=== PATIENT | female | born 1990 | race Caucasian/White ===

== ENCOUNTER 2017-06-15 23:16 | Emergency (ER) | payer BC ==
[~2017-06-15] VITALS: Ht 167.6 cm; Wt 60.6 kg
[~2017-06-15 23:16] MED LIST: ADVAIR 250/501 DISK IH; ALBUTEROL SULF8.5 GM IH; BENTYL10 MG PO; BUSPAR10 MG PO; CALCIUM 600+D1 EAC1 PO; CIPRO500 MG PO; COLACE50 MG PO; CYCLOBENZAPRINE10 MG PO; CYMBALTA60 MG PO; DIFLUCAN150 MG PO; DOXYCYCLINE HY100 MG PO; Ecotrin PO; FLAGYL500 MG PO; FLEXERIL10 MG PO; GABAPENTIN300 MG PO; GABAPENTIN600 MG PO; HYDROXYZINE HCL10 MG PO; IMITREX50 MG PO; JOLIVETTE0.35 MG PO; KEFLEX500 MG PO; LEXAPRO10 MG PO; LORTAB 5-325 M1 EACH PO; MICRONOR0.35 MG PO; MOTRIN800 MG PO; MULTIVITAMIN1 EAC2 PO; Motrin PO; NAPROSYN500 MG PO; NORCO 5/3251 TABLET PO; ONCE DAILY1 EACH PO; PERCOCET 5/31 TABLET PO; PROBIOTIC1 EAC1 PO; PROMETHAZINE HC25 M1 PO; TOPAMAX100 MG PO; TOPAMAX50 MG PO; ULTRAM50 MG PO; YAZ1 TABLET PO; ZOFRAN4 MG PO
[2017-06-16 00:06] LABS: ADD MIUA? YES; BILIRUBIN NEGATIVE; BLOOD NEGATIVE; COLOR YELLOW ((YELLOW)); GLUCOSE (STRIP) NEGATIVE; KETONES NEGATIVE; LEUKOCYTES NEGATIVE; NITRITE NEGATIVE; PROTEIN (STRIP) 30; UROBILINOGEN 0.2 MG/DL (0.2-1.0)
[2017-06-16 00:20] LABS: BACTERIA RARE /HPF; EPITHELIAL CELLS 1+ /HPF; MUCUS TRACE /LPF; RED BLOOD CELLS 0-5 /HPF (0-5); UCUL ADDED? NO; WHITE BLOOD CELLS 0-5 /HPF (0-5)
[2017-06-16 00:28] LABS: HEMATOCRIT 46.1 % (36.0-46.0); MCH 30.7 PG (29.0-34.0); MCHC 34.3 G/DL (30.0-36.0); MCV 89.7 FL (83-99); MEAN PLAT.VOLUME 9.3 uM^3 (9.5-12.4); PLATELET COUNT 326 K/uL (156-360); RBC DIS.WIDTH-CV 11.8 % (11.8-14.6); RBC DIS.WIDTH-SD 38.7 % (39-53); RED BLOOD COUNT 5.14 M/uL (3.80-5.20); WHITE BLOOD COUNT 13.8 K/uL (4.1-10.2)
[2017-06-16 00:44] LABS: CHLORIDE 102 mEq/L (99-109); POTASSIUM 3.9 mEq/L (3.7-5.4); SODIUM 135 mEq/L (136-147)
[2017-06-16 00:46] LABS: GLUCOSE 86 mg/dL (70-99)
[2017-06-16 00:47] LABS: ANION GAP 12 MEQ/L (2-14)
[2017-06-16 00:48] LABS: TOTAL BILIRUBIN 0.3 mg/dL (0.0-1.0)
[2017-06-16 00:50] LABS: ALKALINE PHOSPHATASE 70 IU/L (3-129); GFR ESTIMATE (CALCULATED) > 59 mL/min/
[2017-06-16 00:51] LABS: UREA NITROGEN (BUN) 8 mg/dL (9-23)
[2017-06-16 00:53] LABS: LIPASE 19 U/L (1.0-51.0)
[2017-06-16 01:04] LABS: QUANTITATIVE HCG < 4.0 MIU/ML
[2017-06-16] MEDS ORDERED: REGLAN5 MG PO (01:26)
[2017-06-16 01:55] VITALS: BP 118/82
== END 2017-06-16 01:56 | disposition home or self-care (01) ==
LOC: EME 23:16
PROVIDERS: Physician Assistant Medical
DX: A08.4 Viral intestinal infection, unspecified (principal); J45.909 Unspecified asthma, uncomplicated; R56.9 Unspecified convulsions; G43.909 Migraine, unspecified, not intractable, without status migrainosus; Z86.73 Personal history of transient ischemic attack (TIA), and cerebral infarction without residual deficits; Z97.5 Presence of (intrauterine) contraceptive device; F17.200 Nicotine dependence, unspecified, uncomplicated; Z88.0 Allergy status to penicillin
CPT/HCPCS: 80053; 81003; 83690; 84702; 85027; 99281; 99285; J2765; J7030